=== PATIENT | female | born 1935 | race Caucasian/White ===

== ENCOUNTER → 2018-10-27 | Outpatient (CLI) | payer OTHER | END | disposition home or self-care (01) | LOC: RAH 13:32 | PROVIDERS: ATTEND Internal Medicine Endocrinology, Diabetes & Metabolism | DX: E04.2 Nontoxic multinodular goiter (principal) | CPT/HCPCS: 76536 ==

== ENCOUNTER → 2020-04-08 | Outpatient (CLI) | payer OTHER | END | disposition home or self-care (01) | LOC: RAH 10:00 | PROVIDERS: ATTEND Internal Medicine Endocrinology, Diabetes & Metabolism | DX: E04.2 Nontoxic multinodular goiter (principal) | CPT/HCPCS: 76536 ==

== ENCOUNTER → 2021-12-09 | Outpatient (CLI) | payer OTHER | END | disposition home or self-care (01) | LOC: RAH 09:05 | PROVIDERS: ATTEND Internal Medicine Endocrinology, Diabetes & Metabolism | DX: E04.2 Nontoxic multinodular goiter (principal) | CPT/HCPCS: 76536 ==

== ENCOUNTER 2022-03-20 21:35 | Emergency (ER) | payer OTHER ==
[~2022-03-20] VITALS: Ht 165.1 cm; Wt 83.0 kg
[2022-03-20] MEDS ORDERED: ACETAMINOPHEN WITH CODEINE 1 TAB TAB PO ONE (22:30)
[2022-03-20 23:24] VITALS: BP 121/50
[2022-03-20] MEDS ORDERED: ACET-2079 PO (23:57)
== END 2022-03-21 00:23 | disposition home or self-care (01) ==
LOC: EDH 21:35
DX: S63.501A Unspecified sprain of right wrist, initial encounter (principal); S83.91XA Sprain of unspecified site of right knee, initial encounter; E78.00 Pure hypercholesterolemia, unspecified; I10 Essential (primary) hypertension; W01.0XXA Fall on same level from slipping, tripping and stumbling without subsequent striking against object, initial encounter; Y93.89 Activity, other specified; Y92.89 Other specified places as the place of occurrence of the external cause; Y99.8 Other external cause status
CPT/HCPCS: 29125; 29505; 73100; 73562

== ENCOUNTER → 2022-05-19 | Outpatient (CLI) | payer OTHER ==
[~2022-05-19] MED LIST: ACET-2079 PO
== END | disposition home or self-care (01) ==
LOC: RAH 13:01
PROVIDERS: ATTEND Internal Medicine
DX: S52.591A Other fractures of lower end of right radius, initial encounter for closed fracture (principal); M19.031 Primary osteoarthritis, right wrist; M85.88 Other specified disorders of bone density and structure, other site; X58.XXXA Exposure to other specified factors, initial encounter; Y93.89 Activity, other specified; Y92.89 Other specified places as the place of occurrence of the external cause; Y99.8 Other external cause status
CPT/HCPCS: 73110

== ENCOUNTER → 2022-12-24 | Outpatient (CLI) | payer OTHER | END | disposition home or self-care (01) | LOC: RAH 10:40 | PROVIDERS: ATTEND Internal Medicine Endocrinology, Diabetes & Metabolism | DX: E04.2 Nontoxic multinodular goiter (principal) | CPT/HCPCS: 76536 ==

== ENCOUNTER → 2023-11-28 | Outpatient (CLI) | payer OTHER | END | disposition home or self-care (01) | LOC: RAH 13:21 → EEVIPCON 13:30 | PROVIDERS: ATTEND Internal Medicine Endocrinology, Diabetes & Metabolism | DX: E04.1 Nontoxic single thyroid nodule (principal) | CPT/HCPCS: 76536 ==

== ENCOUNTER → 2025-01-14 | Outpatient (CLI) | payer OTHER ==
--- NOTE | 2025-01-15 06:18 | HMCIMG ---
EXAMINATION: ULTRASOUND OF THE THYROID. CLINICAL HISTORY: Non toxic multinodular goiter. COMPARISON: None. TECHNIQUE: Transverse and longitudinal images were obtained through both lobes and the isthmus of the thyroid. FINDINGS: The thyroid gland is bulky in caliber with heterogenous tissue echotexture and increased vascularity. The right thyroid lobe measures 5.8 x 3.5 x 2.8 cm and the left thyroid lobe measures 4.7 x 2.5 x 3.5 cm in the craniocaudal, AP, and transverse dimensions respectively. The isthmus measures 0.5 cm in AP dimension. Right lobe: There is a heteroechoic solid nodule that measures 3.6 x 3.4 x 3.6 cm at the mid pole (TR4). Left lobe: There is a heteroechoic solid nodule that measures 3.4 x 2.5 x 3.0 cm at the upper to mid pole (TR4). There is an isoechoic solid nodule that measures 0.8 x 1.2 x 0.9 cm at the mid pole (TR4). There is a heteroechoic solid nodule that measures 1.7 x 1.7 x 1.3 cm at the lower pole (TR5). Isthmus: There is an isoechoic solid nodule that measures 1.0 x 1.1 x 1.07 cm (TR4). There is a heteroechoic solid nodule that measures 1.8 x 1.6 x 2.1 cm (TR4). There is a hypoechoic solid nodule that measures 0.4 x 0.28 x 0.27 cm (TR5). No significantly enlarged lymph nodes. IMPRESSION: Bulky and heteroechoic thyroid with increased vascularity may reflect thyroiditis. Nodules in both lobes and isthmus of the thyroid. TI-RADS follow up recommendations: TR1: no FNA required TR2: no FNA required TR3: more than or equal to 1.5 cm follow up, more than or equal to 2.5 cm FNA follow up: 1, 3 and 5 years TR4: more than or equal to 1.0 cm follow up, more than or equal to 1.5 cm FNA follow up: 1, 2, 3 and 5 years TR5: more than or equal to 0.5 cm follow up, more than or equal to 1.0 cm FNA annual follow up for up to 5 years /[place]
== END | disposition home or self-care (01) ==
LOC: RAH 14:26
PROVIDERS: ATTEND Internal Medicine Endocrinology, Diabetes & Metabolism
DX: E04.2 Nontoxic multinodular goiter (principal)
CPT/HCPCS: 76536